=== PATIENT | female | born 1975 | race Caucasian/White ===

== ENCOUNTER → 2016-03-29 | Outpatient (CLI) | payer OTHER ==
[2016-03-29 11:21] LABS: CH 32.2; CHCM 33.2; HCT 38.1 % (34.0-46.0); HDW 2.67; HGB 12.5 gm/dL (11.4-16.0); MCHC 32.9 g/dL (31.0-37.0); MCV 97.3 fL (80.0-100.0); Mean Platelet Volume 7.2; RBC 3.91 m/uL (3.80-5.40); RDW 13.6 % (11.5-15.5); WBC 5.5 k/uL (3.8-10.6)
[2016-03-29 11:28] LABS: ALT 34 U/L (9-52); AST 25 U/L (14-36); Alkaline Phosphatase 53 U/L (38-126); Anion Gap 10 mmol/L; Blood Urea Nitrogen 10 mg/dL (7-17); Calcium 9.1 mg/dL (8.4-10.2); Carbon Dioxide 26 mmol/L (22-30); Chloride 107 mmol/L (98-107); Glucose 79 mg/dL (74-99); Non-African American GFR(MDRD) >60 (>60 ml/min/1.73 sqM); Potassium 4.2 mmol/L (3.5-5.1); Sodium 143 mmol/L (137-145); Total Bilirubin 0.5 mg/dL (0.2-1.3); Total Protein 6.6 g/dL (6.3-8.2)
[2016-03-29 11:33] LABS: Partial Thromboplastin Time 23.9 sec (22.0-30.0); Prothrombin Time 10.5 sec (9.0-12.0)
== END | disposition home or self-care (01) ==
LOC: LABWHC1 10:49
PROVIDERS: ATTEND Plastic Surgery Plastic Surgery Within the Head and Neck
DX: Z01.812 Encounter for preprocedural laboratory examination (principal); Z13.0 Encounter for screening for diseases of the blood and blood-forming organs and certain disorders involving the immune mechanism
CPT/HCPCS: 36415; 80053; 85027; 85610; 85730

== ENCOUNTER → 2019-09-13 | Outpatient (CLI) | payer OTHER ==
[2019-09-13 12:19] VITALS: BP 108/69; PULSE 58; RESP 16; TEMP 98.1; BMI 27.3
--- NOTE | 2019-09-13 14:48 | P.BASOAP ---
Subjective Progress Note Date: 09/13/19 Principal diagnosis: Morbid obesity Patient presents today with complaints of increased dysphagia. States that healthy foods are difficult for her to and just. She had a lap band placed initially in 2007. He was last seen in 2013. At that time the patient was having some left upper quadrant pain. She actually had band adjustment from 7- 7.5 mL at that time. No weight change recently. Would like her band loosened. Objective - Vital Signs Vital signs: Vital Signs Temp 98.1 F 09/13/19 12:16 Pulse 58 L 09/13/19 12:16 Resp 16 09/13/19 12:16 BP 108/69 09/13/19 12:16 Pulse Ox Intake & Output 09/12/19 09/13/19 09/13/19 18:59 06:59 18:59 Weight 72.121 kg - Exam Abdomen: Soft, nontender, nondistended Assessment/Plan (1) Morbid obesity Narrative/Plan: We'll loosen the patient's band at this time. The band was accessed sterilely and 1.5 mL was removed. Currently at 6 mL. Monitor symptoms. Patient will contact me with any residual dysphagia symptoms. Plan: Date: 09/13/19 Initial Weight: 138.346 kg Initial BMI: 52.3 Current Weight: 72.121 kg Current BMI: 27.3 Type of Surgery: Adjustable Gastric Banding Total Volume in Band: 8.1 Previous Volume: Volume Removed: 1.5 Volume Added: Band Size:
== END | disposition home or self-care (01) ==
LOC: BARWHC3 11:51
PROVIDERS: ATTEND Surgery
DX: E66.01 Morbid (severe) obesity due to excess calories (principal); Z46.51 Encounter for fitting and adjustment of gastric lap band; Z68.27 Body mass index [BMI] 27.0-27.9, adult
CPT/HCPCS: 99212

== ENCOUNTER → 2023-08-20 | Outpatient (CLI) | payer OTHER ==
--- NOTE | 2023-08-20 19:18 | CT ---
EXAMINATION TYPE: CT abdomen pelvis w con CT DLP: 1758.7 mGycm, Automated exposure control for dose reduction was used. DATE OF EXAM: 08/20/2023 6:54 PM COMPARISON: None CLINICAL INDICATION:Female, 47 years old with history of R10.12 LEFT UPPER QUADRANT PAIN; LUQ abdomin al pain under ribs x 1 year TECHNIQUE: Axial CT abdomen pelvis w con;Sagittal and coronal reformats were created on a separate w orkstation. Contrast used:100 mL of Isovue 300 with IV Contrast, (none if empty) Oral contrast used: with Oral Contrast (none if empty) FINDINGS: LOWER CHEST: Bilateral breast implants appear intact. ABDOMEN LIVER: Unremarkable GALLBLADDER AND BILE DUCTS: Unremarkable. PANCREAS: Unremarkable. SPLEEN: Unremarkable. ADRENAL GLANDS: Unremarkable. KIDNEYS AND URETERS: No evidence of hydronephrosis or renal calculus. The ureters are unremarkable. PELVIS BLADDER: Unremarkable REPRODUCTIVE: Intrauterine device seen within the endometrium. ABDOMEN & PELVIS STOMACH AND BOWEL: No evidence of bowel obstruction. Gastric lap band appears in appropriate position . The appendix is normal. PERITONEUM/RETROPERITONEUM: No evidence of pneumoperitoneum or free fluid. VASCULATURE: No evidence of aortic aneurysm. MUSCULOSKELETAL: No acute osseous abnormalities, limbus vertebrae of the L5 vertebral body. LYMPH NODES: No gross evidence for lymphadenopathy. SOFT TISSUE/ABDOMINAL WALL: Unremarkable IMPRESSION: 1. No evidence for acute left upper quadrant process. 2. Gastric lap band appears in appropriate position.
== END | disposition home or self-care (01) ==
LOC: RADCTMAIN 17:23
PROVIDERS: ATTEND Surgery
DX: R10.12 Left upper quadrant pain (principal); Z98.84 Bariatric surgery status
CPT/HCPCS: 74177; Q9967

== ENCOUNTER → 2024-07-20 | Outpatient (CLI) | payer OTHER ==
[2024-07-20 14:51] VITALS: BP 124/78; PULSE 60; RESP 16; TEMP 98.1; BMI 41.4
--- NOTE | 2024-07-20 15:11 | P.HPBAR ---
Bariatric H&P - History & Physicial H&P Date: 07/20/24 History & Physicial: Visit/CC: f/u Patient initial contact: Initial weight: 138.346 kg Initial weight in pounds: 305.00 Height: 5 ft 3.25 in Initial BMI: 53.6 Last weight: Current weight: 107.048 kg Current weight in pounds: 236.00 Current BMI: 41.4 [place] body weight (based on NIH guidelines): 52.84 kg Excess body weight loss: 36.6% The patient is a 48 year-old F who presents for Bariatric Assessment. Has intolerance to the band. She went to [facility] for gastric bypass. SHe has trouble with band. Highest 310 pounds. Lowest 165 pounds. Family all members with weight problems. She does not have heartburn. She has pain along the neck. She reports chewable. Needs labs. Bypass or sleeve in the future. She uses [facility]. She blood work. Gallbladder needed for gallstones. She does not eat for 2 hours hiatal hernia or ulcer. Scope. Needs EGD. Past Medical History Past Medical History: No Reported History History of Any Multi-Drug Resistant Organisms: None Reported Past Surgical History: Bariatric Surgery Additional Past Surgical History / Comment(s): D&C 2007. Lap Band 2006. Panni, and excess skin removed from bilateral arms Past Anesthesia/Blood Transfusion Reactions: No Reported Reaction Past Psychological History: No Psychological Hx Reported Smoking Status: Former smoker Past Alcohol Use History: None Reported Past Drug Use History: None Reported - Past Family History Mother Family Medical History: No Reported History Surgical - Exam Vital Signs Temp Pulse Resp BP 98.1 F 60 16 124/78 07/20/24 14:41 07/20/24 14:41 07/20/24 14:41 07/20/24 14:41 Bariatric Checklist Checklist: Plan: Checklist: EGD: 1. Hiatal hernia: 2. H. Pylori: HgbA1c: Vitamin D: Smoking: Never smoker Primary care physician referral: Jessica Psychiatry clearance: Cardiology clearance: Sleep study: Diet journal: VTE risk score: VTE risk level: Rehab needs at discharge:
[2024-07-20 16:05] LABS: INR 0.9 (<1.2); Partial Thromboplastin Time 23.2 sec (22.0-30.0); Prothrombin Time 10.4 sec (10.0-12.5)
[2024-07-20 18:19] LABS: HCT 39.2 % (37.2-46.3); HGB 13.7 g/dL (12.0-15.0); MCH 31.6 pg (27.0-32.0); MCHC 34.9 g/dL (32.0-37.0); MCV 90.3 FL (80.0-97.0); Mean Platelet Volume 9.6 FL (9.5-12.2); NRBC Per 100 WBC 0 X 10*3/uL (0.00-0.01); Platelet Count 221 X 10*3/uL (140-440); RBC 4.34 X 10*6/uL (4.10-5.20); RDW 12.3 % (11.5-14.5); WBC 6.05 X 10*3/uL (4.50-10.00)
[2024-07-20 18:55] LABS: % Iron Saturation 17.79 (12.00-45.00); ALT 21 U/L (8-44); AST 30 U/L (13-35); Albumin 4.3 g/dL (3.8-4.9); Albumin/Globulin Ratio 1.72 Ratio (1.60-3.17); Alkaline Phosphatase 92 U/L (41-126); Blood Urea Nitrogen 10.5 mg/dL (9.0-27.0); Calcium 9.5 mg/dL (8.7-10.3); Carbon Dioxide 24.9 mmol/L (21.6-31.8); Chloride 104 mmol/L (96-109); Chol/HDL Ratio 1.98 Ratio; Ferritin 48.1 ng/mL (10.0-291.0); Globulin 2.5 g/dL (1.6-3.3); Glucose 86 mg/dL (70-110); Iron 66 UG/DL (50-170); LDL Cholesterol,Calculated 78.3 mg/dL (0.0-131.0); Magnesium 2.1 mg/dL (1.5-2.4); Phosphorus 3.8 mg/dL (2.4-5.1); Potassium 3.8 mmol/L (3.5-5.5); Sodium 141 mmol/L (135-145); Total Bilirubin 0.3 mg/dL (0.3-1.2); Total Iron Binding Capacity 371 UG/DL (228-460); Total Protein 6.8 g/dL (6.2-8.2); VLDL Calculation 11.96 mg/dL (5.00-40.00)
[2024-07-20 22:48] LABS: Prealbumin 23.8 mg/dL (18.0-42.0)
[2024-07-21 13:09] LABS: Zinc, Serum 77 ug/dL (60-130)
[2024-07-22 05:37] LABS: Vitamin A 53 ug/dL (38-106)
[2024-07-22 10:59] LABS: Vit B1(Thiamine) 66 ug/L (38-122)
== END ==
LOC: BARWHC3 14:02
PROVIDERS: ATTEND Surgery Plastic and Reconstructive Surgery
DX: E66.01 Morbid (severe) obesity due to excess calories (principal); Z68.41 Body mass index [BMI] 40.0-44.9, adult; Z98.84 Bariatric surgery status; D50.8 Other iron deficiency anemias; E44.0 Moderate protein-calorie malnutrition; E45 Retarded development following protein-calorie malnutrition; K91.2 Postsurgical malabsorption, not elsewhere classified; E55.9 Vitamin D deficiency, unspecified; N19 Unspecified kidney failure; K74.1 Hepatic sclerosis; T56.894A Toxic effect of other metals, undetermined, initial encounter; K50.90 Crohn's disease, unspecified, without complications
CPT/HCPCS: 80053; 80061; 80307; 80323; 82306; 82525; 82607; 82728; 82746; 83540; 83550; 83735; 83970; 84100; 84134; 84255; 84425; 84590; 84630; 85027; 85610; 85730; 93005; 99211